=== PATIENT | female | born 1935 | race Caucasian/White ===

== ENCOUNTER 2019-09-18 08:45 | Outpatient (CLI) | payer OTHER | END 2019-09-18 08:57 | disposition home or self-care (01) | LOC: NUCLEAR 08:45 | DX: K57.31 Diverticulosis of large intestine without perforation or abscess with bleeding (principal); Z85.038 Personal history of other malignant neoplasm of large intestine; R19.4 Change in bowel habit; R19.7 Diarrhea, unspecified; R97.0 Elevated carcinoembryonic antigen [CEA] | CPT/HCPCS: 78816; A9552 ==

== ENCOUNTER 2019-09-25 05:20 | Day surgery (SDC) | payer OTHER | END 2019-09-25 10:52 | disposition home or self-care (01) | LOC: AMB-ENDOS 05:20 | DX: K57.30 Diverticulosis of large intestine without perforation or abscess without bleeding (principal); K64.8 Other hemorrhoids ==